=== PATIENT | male | born 1980 | race African-American/Black ===

== ENCOUNTER 2022-03-03 08:19 | Emergency (ER) | payer OTHER, SELFPAY ==
--- NOTE | ~2022-03-03 | XR_ITS ---
Right foot Technique: AP, oblique, and lateral views were obtained. Clinical History: Nail gun injury Findings: No acute fracture or dislocation is seen. Osseous alignment is anatomic. Joint spaces are p reserved without erosive or degenerative change. Suggestion of soft tissue laceration the lateral asp ect of the mid to hindfoot.. Impression: No fracture or dislocation. No radiopaque foreign body. Suspected soft tissue laceration lateral aspect of the mid to hindfoot. Reviewed, dictated and finalized at location [facility] [employer] Impression: No fracture or dislocation. No radiopaque foreign body. Suspected soft tissue laceration lateral aspect of the mid to hindfoot.
[2022-03-03 08:39] VITALS: BP 134/97; PULSE 83; RESP 16; TEMP 37.2; O2SAT 100
--- NOTE | 2022-03-03 08:48 | ED.GENADULT ---
HPI - General Adult General Chief complaint: Extremity Injury, Lower Stated complaint: rt foot injury Source: patient Mode of arrival: ambulatory Limitations: no limitations History of Present Illness HPI narrative: Patient presents for evaluation of an injury to the right foot. He indicates a nail was shot into his right foot by a nail gun just [employer]. He was wearing steel toed boots at the time of the injury. He states the nail came out immediately. He does not feel like there is any foreign body in the foot. He rates his pain 7/10. No loss of ROM but movement causes worsening pain. He is not diabetic. He is UTD on tetanus. He smokes 1/2 ppd. Related Data Home Medications Medication Instructions Recorded Confirmed No Home Medications 03/03/22 03/03/22 Allergies Allergy/AdvReac Type Severity Reaction Status Date / Time No Known Allergies Allergy Verified 03/03/22 08:48 Review of Systems Review of Systems: CONSTITUTIONAL: Denies fever, chills, or sweats. EYES: Denies visual changes, redness, or discharge. ENT: Denies rhinorrhea, congestion, sore throat, or otalgia. CARDIOVASCULAR: Denies chest pain, palpitations, or edema. RESPIRATORY: Denies cough or dyspnea. GASTROINTESTINAL: Denies abdominal pain, nausea, vomiting, or diarrhea. GENITOURINARY: Denies dysuria or hematuria. SKIN: Reports puncture wound to the right foot. Denies rash or itching. MUSCULOSKELETAL: reports right foot pain. NEUROLOGIC: Denies headache, numbness, dizziness, or weakness. PSYCHIATRIC: Denies anxiety or depression. FOR[facility]LY [facility], [facility] Past Medical History Medical History No pertinent past medical history Surgical History Surgical History No pertinent past surgical history Family History Family History Mother Family history non-contributory Social History Social History Smoking packs per day: 0.5 Smoking cigarettes per day: 10.0 Smoking status: Current every day smoker Substance use: never Gender identity (if verbalized by the patient): Male Spiritual care concerns: No Exam Narrative: GENERAL: Well-appearing, well-nourished, and in no acute distress. HEAD: Normocephalic, atraumatic. EYES: PERRLA and EOMI. ENT: Nares clear, no rhinorrhea or epistaxis. Mucous membranes moist. Oropharynx without tonsillar hypertrophy exudate or other lesions. Bilateral TMs pearly crandall nonbulging NECK: Supple. No adenopathy or masses. No carotid bruits or JVD CHEST: Clear to auscultation. No respiratory distress. No wheezes rales or rhonchi HEART: Regular rate and rhythm. No murmur heard. Normal peripheral pulses. ABDOMEN: Soft, nontender, nondistended, normal active bowel sounds. EXTREMITIES: Normal range of motion. No edema. SKIN: There is a puncture wound to the lateral aspect of the right foot with a skin flap that is approximately 4mm in size. There is active sanguinous drainage oozing from the puncture wound. NEURO: No focal deficits. Alert and oriented x3. PSYCH: Normal mood and affect. Course Course Emergency Course: this is a 41-year-old male who presented for evaluation of a puncture wound to the right foot. X-ray was obtained and was negative for fracture or retained foreign body. Wound was clean. Dressing was applied. He continued to have oozing from the site. Silver nitrate was applied and will continue to was sanguinous drainage. Surgicel was applied and complete hemostasis was achieved. Dry dressing with coabn was placed. Advised on wound care at home. UTD on tetanus. D/C with keflex. Follow up with primary. Go to the ER for intractable pain or continued bleeding. Level of Care: Express Care Visit Vital Signs Vital signs: Vital Signs Temperature 37.2 C 03/03/22
[2022-03-03] MEDS: IBUPROFEN 400 MG TABLET 800 MG PO (09:47)
== END 2022-03-03 10:08 | disposition home or self-care (01) ==
PROVIDERS: Emergency Provider Nurse Practitioner
DX: S91.331A Puncture wound without foreign body, right foot, initial encounter (principal); F17.210 Nicotine dependence, cigarettes, uncomplicated; W29.4XXA Contact with nail gun, initial encounter
CPT/HCPCS: 73630; 99213; A9270; G0463